=== PATIENT | female | born 1960 | race Caucasian/White ===

== ENCOUNTER 2025-04-05 08:22 | Inpatient (IN) | payer OTHER ==
[2025-04-03 09:41] LABS: BASOPHILS % 0.4 % (0.0-1.0); EOSINOPHILS % 0.0 % (0.0-6.0); LYMPHOCYTES % 21.9 % (18.0-39.1); MONOCYTES % 12.1 % (4.4-11.3); NEUTROPHILS % 64.8 % (38.7-80.0); RED CELL DISTRIBUTION WIDTH 14.8 % (11.7-14.4)
[2025-04-03 10:05] LABS: EST GLOMERULAR FILTRATION RATE 85.0 ML/MIN (>=60)
[~2025-04-05] VITALS: Ht 152.4 cm; Wt 79.8 kg
[~2025-04-05 08:22] MED LIST: ACTOS15 MG PO; ALBUTEROL0.63 MG/3 NEB; BREYNA 160-4.10.3 GM; DOCUSATE SODIUM 100 MG CAP PO PRN; DULOXETINE HCL60 MG; FASENRA; HYDROXYZINE HCL25 MG PO; LYRICA150 MG PO; ONDANSETRON HCL INJ 2MG/ML 2ML 2 MG/ML VIAL IV PRN; OZEMPIC1 MG/0.71; PLAQUENIL200 MG PO; PROTONIX20 MG PO; ROPIVACAINE/EPI/CLONIDINE/KET 50 ML SYRINGE INJ ONE; SINGULAIR4 MG PO; TIZANIDINE HCL4 M1 PO; UBRELVY100 MG
[2025-04-05 09:23] LABS: BASOPHILS % 0.6 % (0.0-1.0); EOSINOPHILS % 0.0 % (0.0-6.0); LYMPHOCYTES % 34.1 % (18.0-39.1); MONOCYTES % 14.4 % (4.4-11.3); NEUTROPHILS % 50.2 % (38.7-80.0); RED CELL DISTRIBUTION WIDTH 15.5 % (11.7-14.4)
[2025-04-05] MEDS ORDERED: LIDOCAINE HCL 2% LOCAL INJ 5 ML SDV VIAL INJ ONE (10:04)
[2025-04-05] MEDS ORDERED: PROPOFOL IV EMULSION 10 MG/ML 20 ML VIAL ONE (10:04)
[2025-04-05] MEDS ORDERED: FENTANYL CITRATE/PF 100MCG/2 ML INJ ONE (10:04)
[2025-04-05] MEDS ORDERED: SEVOFLURANE INHAL SOLN 250 ML PEN BTL ONE (10:04)
[2025-04-05] MEDS ORDERED: ACETAMINOPHEN 1000 MG/100 ML 100 ML IV ONE (10:04)
[2025-04-05] MEDS: CLINDAMYCIN PHOS 900MG/ 50ML 50 ML IV ONE (10:06)
[2025-04-05] MEDS: LACTATED RINGER'S 1,000 ML ONE (10:06)
[2025-04-05] MEDS: INSULIN REGULAR, HUMAN 100 UNIT/1 ML ONE (10:23)
[2025-04-05] MEDS ORDERED: Vancomycin IV 1 GM VIAL ONE (11:40)
[2025-04-05] MEDS ORDERED: DEXAMETHASONE SOD PHOS INJ 4 MG/ML SDV ONE (11:42)
[2025-04-05] MEDS ORDERED: FAMOTIDINE 20 MG/2 ML VIAL IV ONE (11:42)
[2025-04-05] MEDS ORDERED: ONDANSETRON HCL INJ 2MG/ML 2ML 2 MG/ML VIAL ONE (11:42)
[2025-04-05] MEDS: FENTANYL CITRATE/PF 100MCG/2 ML INJ IV ONE ×2 (13:55→14:05)
[2025-04-05 15:59] VITALS: PULSE 75; RESP 20; O2SAT 97
[2025-04-05 16:12] VITALS: BP 133/60; PULSE 87; RESP 18; O2SAT 98
[2025-04-05 17:00] VITALS: BP 133/60; PULSE 87; RESP 18; TEMP 98; O2SAT 98
[2025-04-05] MEDS ORDERED: SIMETHICONE 80 MG CHEW PO PRN (17:15)
[2025-04-05] MEDS ORDERED: ACETAMINOPHEN 325 MG TAB PO PRN (17:15)
[2025-04-05] MEDS ORDERED: DOCUSATE SODIUM 100 MG CAP PO PRN (17:15)
[2025-04-05] MEDS ORDERED: HYDRALAZINE HCL 20 MG/ML VIAL IV PRN (17:15)
[2025-04-05] MEDS ORDERED: DEXTROSE 50% SYRINGE 50 ML IV PRN ×2 (17:15)
[2025-04-05] MEDS ORDERED: MELATONIN 5 MG TABLET PO PRN (17:15)
[2025-04-05] MEDS ORDERED: DIPHENHYDRAMINE HCL 25 MG CAP PO PRN (17:15)
[2025-04-05] MEDS ORDERED: ALBUTEROL/IPRATROPIUM 3 ML NEB NEB PRN (17:15)
[2025-04-05] MEDS ORDERED: POTASSIUM CHLORIDE 20 MEQ TAB CR PO PRN (17:15)
[2025-04-05] MEDS ORDERED: ONDANSETRON HCL INJ 2MG/ML 2ML 2 MG/ML VIAL IV PRN (17:15)
[2025-04-05] MEDS ORDERED: BENZONATATE 100 MG CAP PO PRN (17:15)
[2025-04-05] MEDS: CELECOXIB 200 MG CAP PO SCH (17:31)
[2025-04-05 18:51] VITALS: BP 133/60; PULSE 87; RESP 18; TEMP 98; O2SAT 98
[2025-04-05] MEDS: FENTANYL CITRATE/PF 100MCG/2 ML INJ ONE (19:52)
[2025-04-05 20:00] VITALS: BP 135/60; PULSE 88; RESP 16; TEMP 97.9; O2SAT 99
[2025-04-05 20:35] VITALS: PULSE 78; RESP 20; O2SAT 97
[2025-04-05] MEDS: KETOROLAC TROMETHAMINE 30 MG/ML VIAL ONE (21:53)
[2025-04-05] MEDS: KETOROLAC TROMETHAMINE 30 MG/ML VIAL IV SCH (21:55)
[2025-04-05] MEDS: Clindamycin INJ 300 MG/50 ML 50 ML IV SCH (22:04)
[2025-04-05] MEDS: HYDROXYZINE HCL 25 MG TAB PO SCH (22:04)
[2025-04-05] MEDS: ASPIRIN 81 MG CHEW TAB PO SCH (22:04)
[2025-04-05] MEDS: INSULIN LISPRO 100 UNIT/1 ML 3ML VIAL SQ SCH (22:19)
[2025-04-06] VITALS (8 sets, daily range): BP systolic 112–130; BP diastolic 60–69; PULSE 72–86; RESP 16–20; TEMP 97–99.8; O2SAT 96–100
[2025-04-06 05:16] LABS: BASOPHILS % 0.2 % (0.0-1.0); EOSINOPHILS % 0.0 % (0.0-6.0); LYMPHOCYTES % 7.1 % (18.0-39.1); MONOCYTES % 10.2 % (4.4-11.3); NEUTROPHILS % 81.7 % (38.7-80.0); RED CELL DISTRIBUTION WIDTH 15.5 % (11.7-14.4)
[2025-04-06 05:41] LABS: EST GLOMERULAR FILTRATION RATE 98.0 ML/MIN (>=60)
[2025-04-06] MEDS: HYDROXYCHLOROQUINE SULFATE 200 MG TAB PO SCH (08:44)
[2025-04-06] MEDS: PANTOPRAZOLE SOD 40 MG TABEC PO SCH (08:44)
[2025-04-06] MEDS: PREGABALIN 50 MG CAP PO SCH (08:45)
[2025-04-06] MEDS: HYDROCODONE/APAP 7.5MG-325MG 1 EA TAB PO PRN (08:57)
[2025-04-06] MEDS: ENOXAPARIN SOD INJ 40 MG/0.4 ML SYR SC SCH (16:36)
== END 2025-04-06 17:21 | disposition home or self-care (01) | DRG 465 ==
LOC: OR 08:22 → PACU V 14:13 → MED/SURG 15:20
PROVIDERS: ADMIT Orthopaedic Surgery Adult Reconstructive Orthopaedic Surgery; ATTEND Orthopaedic Surgery Adult Reconstructive Orthopaedic Surgery
PROC: 0SRD0N9 Replacement of Left Knee Joint with Patellofemoral Synthetic Substitute, Cemented, Open Approach (ICD-10-PCS; 2025-04-05)
PROC: 0SPD0NZ Removal of Patellofemoral Synthetic Substitute from Left Knee Joint, Open Approach (ICD-10-PCS; principal; 2025-04-05 11:33)
DX: T84.033A Mechanical loosening of internal left knee prosthetic joint, initial encounter (principal); T38.0X5A Adverse effect of glucocorticoids and synthetic analogues, initial encounter; G89.4 Chronic pain syndrome; D72.829 Elevated white blood cell count, unspecified; Y92.230 Patient room in hospital as the place of occurrence of the external cause; E11.43 Type 2 diabetes mellitus with diabetic autonomic (poly)neuropathy; K31.84 Gastroparesis; Z79.85 Long-term (current) use of injectable non-insulin antidiabetic drugs; Z79.84 Long term (current) use of oral hypoglycemic drugs; Z79.4 Long term (current) use of insulin; E78.5 Hyperlipidemia, unspecified; J45.909 Unspecified asthma, uncomplicated; E66.01 Morbid (severe) obesity due to excess calories; Z68.34 Body mass index [BMI] 34.0-34.9, adult; M06.9 Rheumatoid arthritis, unspecified; M19.91 Primary osteoarthritis, unspecified site; F41.8 Other specified anxiety disorders; Y83.8 Other surgical procedures as the cause of abnormal reaction of the patient, or of later complication, without mention of misadventure at the time of the procedure; Y92.009 Unspecified place in unspecified non-institutional (private) residence as the place of occurrence of the external cause; Z79.899 Other long term (current) drug therapy
CPT/HCPCS: 36415; 71046; 80048; 82948; 85025; 86850; 86900; 93005; 94799; C1713; C1776; J1100; J1308; J1650; J1885; J2003; J2405; J2470; J3373; J3410

== ENCOUNTER 2025-04-09 15:08 | Outpatient (RCR) | payer OTHER ==
[~2025-04-09 15:08] MED LIST changes: -DOCUSATE SODIUM 100 MG CAP PO PRN; -ONDANSETRON HCL INJ 2MG/ML 2ML 2 MG/ML VIAL IV PRN; -ROPIVACAINE/EPI/CLONIDINE/KET 50 ML SYRINGE INJ ONE
== END 2025-04-10 ==
LOC: PT 15:08
PROVIDERS: ATTEND Orthopaedic Surgery Adult Reconstructive Orthopaedic Surgery
DX: M25.562 Pain in left knee (principal); Z96.652 Presence of left artificial knee joint